=== PATIENT | male | born 1995 ===

== ENCOUNTER → 2018-04-28 | Outpatient (CLI) | payer OTHER ==
[~2018-04-28] MED LIST: AMOX50SU; IBUP100S
== END | disposition home or self-care (01) ==
LOC: LAB SHORT 07:33 → PLD 07:33
DX: D17.1 Benign lipomatous neoplasm of skin and subcutaneous tissue of trunk (principal); D17.39 Benign lipomatous neoplasm of skin and subcutaneous tissue of other sites
CPT/HCPCS: 88304